=== PATIENT | male | born 1965 | race Hispanic/Latino ===

== ENCOUNTER 2017-09-20 15:34 | Outpatient (CLI) | payer OTHER | END 2017-09-20 15:35 | disposition home or self-care (01) | LOC: BICRAD 15:34 | PROVIDERS: ATTEND Internal Medicine | DX: L97.521 Non-pressure chronic ulcer of other part of left foot limited to breakdown of skin (principal); M19.071 Primary osteoarthritis, right ankle and foot ==

== ENCOUNTER 2024-02-05 09:13 | Inpatient (IN) | payer OTHER ==
[2024-02-05] MEDS ORDERED: Morphine 4 MG/ML VIAL ONE ×3 (10:49→15:18)
[2024-02-05] MEDS ORDERED: Ondansetron PF 4 MG/2 ML Vial ONE (10:49)
[2024-02-05 11:09] LABS: #Basophils 0.05 10x3/uL (0.0-0.2); %Basophils 0.6 % (0.0-1.0); %Eosinophils 1.2 % (0.0-10.0); %Lymphocytes 8.1 % (21.0-51.0); %Monocytes 9.6 % (0.0-10.0); %Neutrophils 79.9 % (42.0-75.0); Hematocrit 26.4 % (42.0-52.0); Hemoglobin 9.1 g/dL (14.0-18.0); Mean Corpuscular HGB CONC 34.5 g/dL (32.0-36.0); Mean Corpuscular Hemoglobin 31.3 pg (27.0-31.0); Mean Corpuscular Volume 90.7 fL (78.0-98.0); Mean Platelet Volume 9.4 fL (7.4-10.4); Platelet Count 445 10x3/uL (130-400); RBC Distribution Width 17.1 % (11.5-14.5); Red Blood Cell (RBC) Count 2.91 mill/uL (4.70-6.10)
[2024-02-05 11:31] LABS: ALT (SGPT) 6 U/L (8-55); AST (SGOT) 11 U/L (5-34); Albumin 2.4 g/dL (3.5-5.0); Alkaline Phosphatase 108 U/L (40-110); Anion Gap 17 mmol/L (10-20); BUN (Urea Nitrogen) 18 mg/dL (8.4-25.7); Bilirubin, Total 0.6 mg/dL (0.2-1.2); Calc. Creatinine Clearance 0 mL/min (70-130); Calcium 9.4 mg/dL (7.8-10.44); Carbon Dioxide 25 mmol/L (22-29); Chloride 98 mmol/L (98-107); Estimated GFR 104; Globulin 4.5 g/dL (2.4-3.5); Glucose 160 mg/dL (70-105); Lipase 6 U/L (8-78); Potassium 3.7 mmol/L (3.5-5.1); Protein, Total 6.9 g/dL (6.0-8.3); Sodium 136 mmol/L (136-145)
[2024-02-05 11:40] LABS: CRP,High Sensitivity (Inhouse) 17.44 mg/dL (< or = 0.5)
[2024-02-05] MEDS ORDERED: Piperacillin/Tazobactam 4.5 GM VIAL ONE (12:47)
[2024-02-05] MEDS ORDERED: Sodium Chloride 0.9% 100 ML ONE (12:48)
[2024-02-05] MEDS ORDERED: Vancomycin 1 GM/200 ML (FROZEN) BAG ONE (12:48)
[2024-02-05] MEDS ORDERED: Iopamidol-370 76% 500 ML MDV (1 ML CHARGE) ONE (13:57)
[2024-02-05] MEDS ORDERED: Dextrose 50% Abboject 50 ML SYRINGE SLOW IVP PRN (14:15)
[2024-02-05] MEDS ORDERED: Ondansetron ODT 4 MG TAB PO PRN (14:15)
[2024-02-05] MEDS ORDERED: Docusate 100 MG CAP PO PRN (14:18)
[2024-02-05 14:49] LABS: Bilirubin Small (Negative); Blood, Urine Small (Negative); Glucose, Urine (Dipstick) Negative (Negative); Ketone, Urine 15 mg/dL (Negative); Leukocyte Negative (Negative); Nitrite Negative (Negative); Protein, Urine (Dipstick) > or equal to 300 mg/dL (Neg-Trace); Urobilinogen 0.2 mg/dL (Less than 2)
[2024-02-05 14:51] LABS: Clarity Hazy (Clear); Specific Gravity, Urine 1.018 (1.002-1.036)
[2024-02-05 14:58] LABS: Bacteria/HPF None Seen HPF (None Seen); CAUTI Indications for Culture Dysuria,urgency,freq; RBC/HPF 0-3 HPF (0-3); Squamous Epithelial None Seen HPF (0-3); WBC/HPF 0-3 HPF (0-3)
[2024-02-05 14:59] LABS: Urine Culture Reflex No No
[2024-02-05] MEDS: Acetaminophen 325 MG TAB PO PRN (18:15)
[2024-02-05] MEDS: HumaLOG 300 UNITS/3 ML VIAL SC PRN (18:17)
[2024-02-05 18:55] VITALS: BMI 22.3
[2024-02-05] MEDS: Gabapentin 300 MG CAP PO SCH (19:53)
[2024-02-05] MEDS: Morphine 2 MG/ML VIAL SLOW IVP PRN (19:54)
[2024-02-05] MEDS: Apixaban 5 MG TAB PO SCH (19:54)
[2024-02-06 04:52] LABS: #Basophils 0.05 10x3/uL (0.0-0.2); %Basophils 0.6 % (0.0-1.0); %Eosinophils 3.1 % (0.0-10.0); %Lymphocytes 8.2 % (21.0-51.0); %Monocytes 12.5 % (0.0-10.0); %Neutrophils 75.2 % (42.0-75.0); Hematocrit 25.7 % (42.0-52.0); Hemoglobin 8.6 g/dL (14.0-18.0); Mean Corpuscular HGB CONC 33.5 g/dL (32.0-36.0); Mean Corpuscular Hemoglobin 30.7 pg (27.0-31.0); Mean Corpuscular Volume 91.8 fL (78.0-98.0); Platelet Count 392 10x3/uL (130-400)
[2024-02-06 05:20] LABS: ALT (SGPT) 6 U/L (8-55); AST (SGOT) 9 U/L (5-34); Albumin 2.1 g/dL (3.5-5.0); Alkaline Phosphatase 96 U/L (40-110); Anion Gap 15 mmol/L (10-20); BUN (Urea Nitrogen) 16 mg/dL (8.4-25.7); Bilirubin, Total 0.5 mg/dL (0.2-1.2); Calc. Creatinine Clearance 117 mL/min (70-130); Calcium 8.7 mg/dL (7.8-10.44); Carbon Dioxide 24 mmol/L (22-29); Chloride 99 mmol/L (98-107); Estimated GFR 106; Globulin 4.2 g/dL (2.4-3.5); Glucose 160 mg/dL (70-105); Potassium 3.3 mmol/L (3.5-5.1); Protein, Total 6.3 g/dL (6.0-8.3); Sodium 135 mmol/L (136-145)
[2024-02-06] MEDS: Levothyroxine Sodium 112 MCG TAB PO SCH (05:43)
[2024-02-06] MEDS: Hydrochlorothiazide 25 MG TAB PO SCH (09:17)
[2024-02-06] MEDS: Senokot S 8.6-50 MG TAB PO SCH (09:17)
[2024-02-06] MEDS: Lidocaine 4% Patch TD SCH (09:17)
[2024-02-06] MEDS: Potassium Chloride 20 MEQ TAB PO SCH (09:17)
[2024-02-06] MEDS: metFORMIN 500 MG TAB PO SCH (09:18)
[2024-02-06] MEDS: Lisinopril 20 MG TAB PO SCH (09:18)
[2024-02-06] MEDS: Metoprolol Tartrate 5 MG (5 mL) VIAL IVP SCH (13:03)
[2024-02-06] MEDS: Vancomycin (BATCH) 1.75 GM in Premix 1 BAG IVPB SCH (17:08)
[2024-02-06] MEDS ORDERED: Vancomycin 1 GM in Premix 1 BAG IVPB SCH (21:00)
[2024-02-06] MEDS: Transdermal Patch Removal TOP SCH (21:35)
[2024-02-07] MEDS: cloNIDine 0.1 MG TAB PO SCH (01:23)
[2024-02-07 04:33] LABS: Vancomycin, Random 19.6 ug/mL (See Comment)
[2024-02-07] MEDS: Vancomycin (BATCH) 1.25 GM in Premix 1 BAG IVPB SCH (04:35)
[2024-02-07] MEDS: Levothyroxine Sodium 100 MCG TAB PO SCH (05:02)
[2024-02-07] MEDS ORDERED: Ketamine In 0.9 % NaCl 50 MG/5 ML SYRINGE ONE (08:51)
[2024-02-07] MEDS ORDERED: PROPOFOL 200 MG/20 ML VIAL ONE (09:19)
[2024-02-07] MEDS: Gabapentin 300 MG CAP PO SCH (11:16)
[2024-02-07] MEDS: HYDROcodone/Acetaminophen 7.5/325 mg Tablet PO PRN (13:12)
[2024-02-07] MEDS: Metoprolol Tartrate 50 MG TAB PO SCH ×2 (15:35→20:38)
[2024-02-07] MEDS: Metoprolol Tartrate 5 MG (5 mL) VIAL IVP SCH (16:34)
[2024-02-07] MEDS: Potassium Chloride 20 MEQ TAB PO SCH (16:34)
[2024-02-07] MEDS: Cyclobenzaprine 10 MG TAB PO SCH (20:37)
[2024-02-07] MEDS: Vancomycin 1 GM in Premix 1 BAG IVPB SCH (20:39)
[2024-02-08] MEDS: hydrALAZINE 20 MG/ML VIAL SLOW IVP SCH (03:58)
[2024-02-08 04:23] LABS: #Basophils 0.06 10x3/uL (0.0-0.2); %Basophils 1.1 % (0.0-1.0); %Eosinophils 7.5 % (0.0-10.0); %Lymphocytes 19.5 % (21.0-51.0); %Monocytes 11.1 % (0.0-10.0); %Neutrophils 60.4 % (42.0-75.0); Hematocrit 25.2 % (42.0-52.0); Hemoglobin 8.6 g/dL (14.0-18.0); Mean Corpuscular HGB CONC 34.1 g/dL (32.0-36.0); Mean Corpuscular Hemoglobin 29.7 pg (27.0-31.0); Mean Corpuscular Volume 86.9 fL (78.0-98.0); Mean Platelet Volume 8.7 fL (7.4-10.4); Platelet Count 440 10x3/uL (130-400); RBC Distribution Width 16.2 % (11.5-14.5)
[2024-02-08 04:51] LABS: Anion Gap 13 mmol/L (10-20); BUN (Urea Nitrogen) 13 mg/dL (8.4-25.7); Calc. Creatinine Clearance 117 mL/min (70-130); Calcium 8.6 mg/dL (7.8-10.44); Carbon Dioxide 26 mmol/L (22-29); Chloride 100 mmol/L (98-107); Estimated GFR 106; Glucose 170 mg/dL (70-105); Sodium 136 mmol/L (136-145)
[2024-02-08 04:53] LABS: Vancomycin, Random 25.5 ug/mL (See Comment)
[2024-02-08] MEDS: Potassium Chloride 20 MEQ TAB PO SCH (08:59)
[2024-02-08] MEDS: Potassium Bicarbonate/Cit Ac 20 MEQ TAB PO SCH (12:04)
[2024-02-08] MEDS: NIFEdipine XL 60 MG ER.TAB PO SCH (12:35)
[2024-02-08] MEDS ORDERED: Polyethylene Glycol 3350 17 GM Packet PO PRN (14:14)
[2024-02-08] MEDS: Polyethylene Glycol 3350 17 GM Packet PO SCH (14:37)
[2024-02-08] MEDS: Dextrose 5 %-0.45 % NaCl 1,000 ML IV SCH (14:37)
[2024-02-08] MEDS ORDERED: Diazepam 5 MG TAB PO PRN (15:11)
[2024-02-08] MEDS: HumaLOG 300 UNITS/3 ML VIAL SC PRN (21:15)
[2024-02-08] MEDS: Tamsulosin HCl 0.4 MG CAP PO SCH (23:54)
[2024-02-09] MEDS ORDERED: HumaLOG 300 UNITS/3 ML VIAL SC PRN (08:34)
[2024-02-09] MEDS: Vancomycin (BATCH) 1.5 GM in Premix 1 BAG IVPB SCH (09:26)
[2024-02-09] MEDS: NIFEdipine XL 60 MG ER.TAB PO SCH (09:28)
[2024-02-09] MEDS: Insulin Glargine 30 UNITS/0.3 ML VIAL SC SCH (21:17)
[2024-02-09] MEDS: Vancomycin HCl 750 MG in Sodium Chloride 0.9% 250 ML 250 ML IVPB SCH (21:19)
[2024-02-10 05:11] LABS: Hematocrit 22.5 % (42.0-52.0); Hemoglobin 7.7 g/dL (14.0-18.0); Mean Corpuscular HGB CONC 34.2 g/dL (32.0-36.0); Mean Corpuscular Hemoglobin 29.5 pg (27.0-31.0); Mean Corpuscular Volume 86.2 fL (78.0-98.0); Mean Platelet Volume 8.5 fL (7.4-10.4); Platelet Count 420 10x3/uL (130-400); RBC Distribution Width 16.1 % (11.5-14.5); Red Blood Cell (RBC) Count 2.61 mill/uL (4.70-6.10)
[2024-02-10 05:53] LABS: Anion Gap 11 mmol/L (10-20); BUN (Urea Nitrogen) 16 mg/dL (8.4-25.7); Calc. Creatinine Clearance 96 mL/min (70-130); Calcium 8.3 mg/dL (7.8-10.44); Carbon Dioxide 28 mmol/L (22-29); Chloride 98 mmol/L (98-107); Estimated GFR 100; Glucose 319 mg/dL (70-105); Potassium 3.9 mmol/L (3.5-5.1); Sodium 133 mmol/L (136-145)
[2024-02-10] MEDS: HumaLOG 300 UNITS/3 ML VIAL SC PRN (06:06)
[2024-02-10] MEDS: NIFEdipine XL 30 MG ER.TAB PO SCH (10:16)
[2024-02-10] MEDS: Insulin Glargine 30 UNITS/0.3 ML VIAL SC SCH (10:17)
[2024-02-10] MEDS ORDERED: ePHEDrine Sulfate 50 MG/10 ML VIAL ONE (16:00)
[2024-02-10] MEDS ORDERED: PROPOFOL 200 MG/20 ML VIAL ONE (16:00)
[2024-02-10] MEDS ORDERED: Lidocaine 1% PF 5 ML VIAL ONE (16:00)
[2024-02-10] MEDS ORDERED: fentaNYL 50 mcg/mL 1 mL Vial ONE (17:51)
[2024-02-11 05:04] LABS: Hematocrit 23.5 % (42.0-52.0); Hemoglobin 8.2 g/dL (14.0-18.0); Mean Corpuscular HGB CONC 34.9 g/dL (32.0-36.0); Mean Corpuscular Hemoglobin 30.6 pg (27.0-31.0); Mean Corpuscular Volume 87.7 fL (78.0-98.0); Mean Platelet Volume 8.8 fL (7.4-10.4); Platelet Count 446 10x3/uL (130-400); RBC Distribution Width 16.7 % (11.5-14.5); Red Blood Cell (RBC) Count 2.68 mill/uL (4.70-6.10)
[2024-02-11 05:12] LABS: INR-International Normal Ratio 1.2; PTT 37.4 sec (22.9-36.1); Prothrombin Time 14.7 sec (12.0-14.7)
[2024-02-11 06:21] LABS: Anion Gap 11 mmol/L (10-20); BUN (Urea Nitrogen) 16 mg/dL (8.4-25.7); Calc. Creatinine Clearance 115 mL/min (70-130); Calcium 8.6 mg/dL (7.8-10.44); Carbon Dioxide 28 mmol/L (22-29); Chloride 99 mmol/L (98-107); Estimated GFR 104; Glucose 204 mg/dL (70-105); Potassium 3.7 mmol/L (3.5-5.1); Sodium 134 mmol/L (136-145); Vancomycin, Random 31.3 ug/mL (See Comment)
[2024-02-11] MEDS: Saccharomyces boulardii 250 MG CAP PO SCH (10:30)
[2024-02-11] MEDS: NIFEdipine XL 30 MG ER.TAB PO SCH (10:30)
[2024-02-11] MEDS ORDERED: Albumin 5% 500 ML ONE (11:09)
[2024-02-11] MEDS ORDERED: KETAMINE 100 MG/ML (5ML VIAL) ONE (11:09)
[2024-02-11] MEDS ORDERED: Thrombin 5000 UNITS/5 ML VIAL ONE (11:20)
[2024-02-11] MEDS ORDERED: Vancomycin 1 GM VIAL ONE (11:20)
[2024-02-11] MEDS ORDERED: PROPOFOL 20 ML ONE (11:22)
[2024-02-11] MEDS ORDERED: fentaNYL PF 100 MCG/2 ML SYRINGE ONE (11:22)
[2024-02-11] MEDS ORDERED: Vecuronium 10 MG VIAL ONE (11:50)
[2024-02-11] MEDS ORDERED: Dexamethasone 20 MG/5 ML VIAL ONE (11:50)
[2024-02-11] MEDS ORDERED: Rocuronium Bromide 10 MG/ML (10ML VIAL) ONE (11:50)
[2024-02-11] MEDS ORDERED: PACU-Morphine 4MG/ML VIAL SLOW IVP PRN (13:25)
[2024-02-11] MEDS ORDERED: Ketorolac Tromethamine 30 MG/ML VIAL IVP PRN (13:25)
[2024-02-11] MEDS ORDERED: Promethazine HCl 25 MG/ML VIAL IM PRN (13:25)
[2024-02-11] MEDS ORDERED: Morphine Sulfate 2 MG/ML SYRINGE SLOW IVP PRN (13:25)
[2024-02-11] MEDS ORDERED: Ondansetron HCl/PF 4 MG/2 ML Vial IVP PRN (13:25)
[2024-02-11] MEDS ORDERED: SUGAMMADEX SODIUM 200 MG/2 ML VIAL ONE (14:32)
[2024-02-11] MEDS ORDERED: Lidocaine 2% PF 5 ML VIAL ONE (14:32)
[2024-02-11] MEDS ORDERED: diphenhydrAMINE 25 MG CAP PO PRN (15:32)
[2024-02-11] MEDS ORDERED: Milk Of Magnesia 30 ML UDCUP PO PRN (15:32)
[2024-02-11] MEDS ORDERED: Fentanyl 250 MCG/5 ML VIAL ONE (16:19)
[2024-02-11] MEDS ORDERED: HYDROmorphone 0.5 MG/0.5 ML SYRINGE ONE (16:37)
[2024-02-11] MEDS: fentaNYL 50 mcg/mL 1 mL Vial SLOW IVP PRN (18:04)
[2024-02-11] MEDS: Ketorolac Tromethamine 30 MG (1 mL) VIAL IVP PRN (20:52)
[2024-02-11] MEDS: tiZANidine HCl 4 MG TAB PO PRN (20:54)
[2024-02-11] MEDS: Docusate 100 MG CAP PO SCH (20:55)
[2024-02-11] MEDS: HYDROcodone/Acetaminophen 10/325 mg Tablet PO PRN (20:55)
[2024-02-11] MEDS: Vancomycin (BATCH) 1.25 GM in Premix 1 BAG IVPB SCH (21:06)
[2024-02-11] MEDS: Sodium Chloride 0.9% 1,000 ML IV SCH (21:07)
[2024-02-12 07:58] LABS: #Basophils 0.04 10x3/uL (0.0-0.2); %Basophils 0.5 % (0.0-1.0); %Eosinophils 0.8 % (0.0-10.0); %Lymphocytes 15.2 % (21.0-51.0); %Monocytes 8.8 % (0.0-10.0); %Neutrophils 73.8 % (42.0-75.0); Hematocrit 24.9 % (42.0-52.0); Hemoglobin 8.5 g/dL (14.0-18.0); Mean Corpuscular HGB CONC 34.1 g/dL (32.0-36.0); Mean Corpuscular Hemoglobin 30.8 pg (27.0-31.0); Mean Corpuscular Volume 90.2 fL (78.0-98.0); Mean Platelet Volume 8.7 fL (7.4-10.4); Platelet Count 411 10x3/uL (130-400); RBC Distribution Width 17.2 % (11.5-14.5); Red Blood Cell (RBC) Count 2.76 mill/uL (4.70-6.10)
[2024-02-12 08:18] LABS: Anion Gap 12 mmol/L (10-20); BUN (Urea Nitrogen) 21 mg/dL (8.4-25.7); Calc. Creatinine Clearance 103 mL/min (70-130); Calcium 8.7 mg/dL (7.8-10.44); Carbon Dioxide 25 mmol/L (22-29); Chloride 100 mmol/L (98-107); Estimated GFR 99; Glucose 313 mg/dL (70-105); Potassium 4.3 mmol/L (3.5-5.1); Sodium 133 mmol/L (136-145)
[2024-02-12] MEDS: metFORMIN 500 MG TAB PO SCH (18:07)
[2024-02-12] MEDS: Insulin Glargine 30 UNITS/0.3 ML VIAL SC SCH (21:00)
[2024-02-13 05:24] LABS: #Basophils 0.05 10x3/uL (0.0-0.2); %Basophils 0.5 % (0.0-1.0); %Eosinophils 2.9 % (0.0-10.0); %Lymphocytes 13.8 % (21.0-51.0); %Monocytes 9.1 % (0.0-10.0); %Neutrophils 73.1 % (42.0-75.0); Hematocrit 23.9 % (42.0-52.0); Hemoglobin 8.1 g/dL (14.0-18.0); Mean Corpuscular HGB CONC 33.9 g/dL (32.0-36.0); Mean Corpuscular Hemoglobin 30.1 pg (27.0-31.0); Mean Corpuscular Volume 88.8 fL (78.0-98.0); Mean Platelet Volume 8.9 fL (7.4-10.4); Platelet Count 398 10x3/uL (130-400); RBC Distribution Width 17.4 % (11.5-14.5); Red Blood Cell (RBC) Count 2.69 mill/uL (4.70-6.10)
[2024-02-13] MEDS: Acetaminophen/Codeine 30-300mg Tablet PO PRN (05:51)
[2024-02-13 06:16] LABS: Anion Gap 10 mmol/L (10-20); BUN (Urea Nitrogen) 23 mg/dL (8.4-25.7); Calc. Creatinine Clearance 105 mL/min (70-130); Calcium 8.1 mg/dL (7.8-10.44); Carbon Dioxide 27 mmol/L (22-29); Chloride 100 mmol/L (98-107); Estimated GFR 100; Glucose 130 mg/dL (70-105); Potassium 4.2 mmol/L (3.5-5.1); Sodium 133 mmol/L (136-145)
[2024-02-13] MEDS: metFORMIN 500 MG TAB PO SCH (08:46)
[2024-02-13] MEDS: Enoxaparin 40 MG (0.4 mL) SYRINGE SC SCH (08:47)
[2024-02-13] MEDS ORDERED: Bisacodyl 10 MG SUPP PR PRN (16:30)
[2024-02-13] MEDS: Polyethylene Glycol 3350 17 GM Packet PO SCH (17:26)
[2024-02-13] MEDS: Vancomycin 1 GM in Premix 1 BAG IVPB SCH (22:41)
[2024-02-14] MEDS ORDERED: Lidocaine 1% PF 5 ML VIAL ONE (08:26)
[2024-02-14] MEDS ORDERED: Sodium Bicarbonate 2.5 MEQ/5 ML SDV ONE (08:26)
[2024-02-14] MEDS: Polyethylene Glycol 3350 17 GM Packet PO SCH (08:33)
[2024-02-15] MEDS: Rifampin 600 MG in Sodium Chloride 0.9% 100 ML IVPB SCH (01:22)
[2024-02-15 07:35] LABS: Vancomycin, Random 28.9 ug/mL (See Comment)
[2024-02-16 09:28] LABS: #Basophils 0.06 10x3/uL (0.0-0.2); %Basophils 0.7 % (0.0-1.0); %Eosinophils 2.5 % (0.0-10.0); %Lymphocytes 15.3 % (21.0-51.0); Hemoglobin 8.3 g/dL (14.0-18.0); Mean Corpuscular HGB CONC 34.6 g/dL (32.0-36.0); Mean Corpuscular Hemoglobin 29.9 pg (27.0-31.0); Mean Corpuscular Volume 86.3 fL (78.0-98.0); Platelet Count 373 10x3/uL (130-400); RBC Distribution Width 16.2 % (11.5-14.5); Red Blood Cell (RBC) Count 2.78 mill/uL (4.70-6.10)
[2024-02-16 09:39] LABS: Anion Gap 12 mmol/L (10-20); BUN (Urea Nitrogen) 15 mg/dL (8.4-25.7); Calc. Creatinine Clearance 153 mL/min (70-130); Calcium 8.5 mg/dL (7.8-10.44); Carbon Dioxide 27 mmol/L (22-29); Chloride 97 mmol/L (98-107); Estimated GFR 111; Glucose 91 mg/dL (70-105); Potassium 4.1 mmol/L (3.5-5.1); Sodium 132 mmol/L (136-145)
[2024-02-16 09:40] LABS: CRP,High Sensitivity (Inhouse) 4.66 mg/dL (< or = 0.5)
[2024-02-17] MEDS: Ondansetron PF 4 MG/2 ML Vial IVP PRN (13:37)
[2024-02-17] MEDS ORDERED: Insulin Glargine 30 UNITS/0.3 ML VIAL SC SCH (14:42)
[2024-02-17] MEDS: Glucagon 1 MG/ML KIT IM PRN (16:22)
[2024-02-17] MEDS: Dextrose 5% in Water 1,000 ML IV PRN (16:30)
[2024-02-17] MEDS: Vancomycin (BATCH) 1.25 GM in Premix 1 BAG IVPB SCH (23:35)
[2024-02-18 09:16] LABS: #Basophils 0.04 10x3/uL (0.0-0.2); %Basophils 0.5 % (0.0-1.0); %Lymphocytes 17.6 % (21.0-51.0); %Monocytes 8.4 % (0.0-10.0); %Neutrophils 70.1 % (42.0-75.0); Hematocrit 21.8 % (42.0-52.0); Hemoglobin 7.6 g/dL (14.0-18.0); Mean Corpuscular HGB CONC 34.9 g/dL (32.0-36.0); Mean Corpuscular Hemoglobin 30.8 pg (27.0-31.0); Mean Corpuscular Volume 88.3 fL (78.0-98.0); Mean Platelet Volume 8.9 fL (7.4-10.4); Platelet Count 334 10x3/uL (130-400); RBC Distribution Width 15.9 % (11.5-14.5); Red Blood Cell (RBC) Count 2.47 mill/uL (4.70-6.10)
[2024-02-18 09:28] LABS: Vancomycin, Random 27.4 ug/mL (See Comment)
[2024-02-18 09:32] LABS: ALT (SGPT) 6 U/L (8-55); AST (SGOT) 13 U/L (5-34); Albumin 1.8 g/dL (3.5-5.0); Alkaline Phosphatase 109 U/L (40-110); Anion Gap 10 mmol/L (10-20); BUN (Urea Nitrogen) 14 mg/dL (8.4-25.7); Bilirubin, Total 0.5 mg/dL (0.2-1.2); Calc. Creatinine Clearance 137 mL/min (70-130); Calcium 8.4 mg/dL (7.8-10.44); Carbon Dioxide 28 mmol/L (22-29); Chloride 95 mmol/L (98-107); Estimated GFR 107; Globulin 3.6 g/dL (2.4-3.5); Glucose 92 mg/dL (70-105); Potassium 4.1 mmol/L (3.5-5.1); Protein, Total 5.4 g/dL (6.0-8.3); Sodium 129 mmol/L (136-145)
[2024-02-19] MEDS: HYDROcodone/Acetaminophen 5/325 mg Tablet PO PRN (13:57)
[2024-02-20 08:42] VITALS: BMI 25.7
[2024-02-21] MEDS: metFORMIN 500 MG TAB PO SCH (08:58)
[2024-02-22] MEDS ORDERED: Morphine 4 MG/ML VIAL SLOW IVP SCH (09:45)
[2024-02-22] MEDS: Morphine 2 MG/ML VIAL SLOW IVP SCH (10:07)
[2024-02-22] MEDS: Morphine 4 MG/ML VIAL SLOW IVP SCH (10:07)
[2024-02-22] MEDS: Insulin Glargine 30 UNITS/0.3 ML VIAL SC SCH (21:17)
[2024-02-23 07:53] LABS: Vancomycin, Random 29.6 ug/mL (See Comment)
[2024-02-24] MEDS: hydrALAZINE 20 MG/ML VIAL SLOW IVP SCH (01:05)
[2024-02-25 04:54] LABS: Hemoglobin 7.5 g/dL (14.0-18.0); Mean Corpuscular HGB CONC 34.1 g/dL (32.0-36.0); Mean Corpuscular Hemoglobin 29.6 pg (27.0-31.0); Platelet Count 358 10x3/uL (130-400); RBC Distribution Width 15.9 % (11.5-14.5); Red Blood Cell (RBC) Count 2.53 mill/uL (4.70-6.10)
[2024-02-25 05:17] LABS: Anion Gap 13 mmol/L (10-20); BUN (Urea Nitrogen) 19 mg/dL (8.4-25.7); Calc. Creatinine Clearance 146 mL/min (70-130); Calcium 8.2 mg/dL (7.8-10.44); Carbon Dioxide 24 mmol/L (22-29); Chloride 100 mmol/L (98-107); Estimated GFR 108; Glucose 98 mg/dL (70-105); Potassium 3.8 mmol/L (3.5-5.1); Sodium 133 mmol/L (136-145)
[2024-02-25] MEDS ORDERED: NIFEdipine XL 30 MG ER.TAB PO SCH (07:56)
[2024-02-25] MEDS: NIFEdipine XL 60 MG ER.TAB PO SCH (09:07)
[2024-02-26 11:44] VITALS: TEMP 97.9
[2024-02-26 15:40] VITALS: BP 164/81
== END 2024-02-26 16:17 | DRG 853 ==
LOC: ERS 09:13 → ERHOLD 14:20 → 2SW 15:57 → OBSVTOIN 02-06 15:19 → 2NO 02-08 19:37 → SURG A 02-11 09:28
PROVIDERS: ADMIT Family Medicine; ATTEND Hospitalist
PROC: 3E03329 Introduction of Other Anti-infective into Peripheral Vein, Percutaneous Approach (ICD-10-PCS; 2024-02-05)
PROC: B245ZZ4 Ultrasonography of Left Heart, Transesophageal (ICD-10-PCS; 2024-02-07)
PROC: 3E033XZ Introduction of Vasopressor into Peripheral Vein, Percutaneous Approach (ICD-10-PCS; 2024-02-10)
PROC: 0PS404Z Reposition Thoracic Vertebra with Internal Fixation Device, Open Approach (ICD-10-PCS; principal; 2024-02-11)
PROC: 00NX0ZZ Release Thoracic Spinal Cord, Open Approach (ICD-10-PCS; 2024-02-11)
PROC: 30233J1 Transfusion of Nonautologous Serum Albumin into Peripheral Vein, Percutaneous Approach (ICD-10-PCS; 2024-02-11)
PROC: 30233N1 Transfusion of Nonautologous Red Blood Cells into Peripheral Vein, Percutaneous Approach (ICD-10-PCS; 2024-02-12)
PROC: 02HV33Z Insertion of Infusion Device into Superior Vena Cava, Percutaneous Approach (ICD-10-PCS; 2024-02-14)
PROC: B5181ZA Fluoroscopy of Superior Vena Cava using Low Osmolar Contrast, Guidance (ICD-10-PCS; 2024-02-14)
PROC: 3E04329 Introduction of Other Anti-infective into Central Vein, Percutaneous Approach (ICD-10-PCS; 2024-02-14)
PROC: B548ZZA Ultrasonography of Superior Vena Cava, Guidance (ICD-10-PCS; 2024-02-14)
DX: A41.02 Sepsis due to Methicillin resistant Staphylococcus aureus (principal); G06.1 Intraspinal abscess and granuloma; M46.24 Osteomyelitis of vertebra, thoracic region; M84.48XA Pathological fracture, other site, initial encounter for fracture; E11.69 Type 2 diabetes mellitus with other specified complication; G47.33 Obstructive sleep apnea (adult) (pediatric); M46.44 Discitis, unspecified, thoracic region; M48.04 Spinal stenosis, thoracic region; B95.62 Methicillin resistant Staphylococcus aureus infection as the cause of diseases classified elsewhere; J32.9 Chronic sinusitis, unspecified; D64.9 Anemia, unspecified; E87.6 Hypokalemia; E03.9 Hypothyroidism, unspecified; I48.0 Paroxysmal atrial fibrillation; Z79.2 Long term (current) use of antibiotics; Z91.199 Patient's noncompliance with other medical treatment and regimen due to unspecified reason; Z90.49 Acquired absence of other specified parts of digestive tract; Z98.890 Other specified postprocedural states
CPT/HCPCS: 36415; 36416; 36430; 36569; 51701; 71045; 72128; 72131; 72157; 72158; 74177; 76937; 77001; 80048; 80053; 80202; 81001; 82565; 83605; 83690; 85025; 85027; 85610; 85730; 86140; 86141; 86850; 86900; 86901; 87040; 87077; 87086; 87149; 87186; 93005; 93010; 93312; 96365; 96367; 96375; 96376; A6258; C1713; C1751; C1776; C1889; G0378; J0360; J1100; J1170; J1611; J1650; J1815; J1885; J2001; J2270; J2272; J2405; J2543; J2704; J3010; J3370; J3370-JW; J3490; J7042; J7050; J7070; P9016; P9045; Q9967

== ENCOUNTER 2024-03-14 15:47 | Inpatient (IN) | payer OTHER ==
[~2024-03-14 15:47] MED LIST: Iopamidol-370 76% 500 ML MDV (1 ML CHARGE) ONE
[2024-03-14 18:58] LABS: #Basophils 0.05 10x3/uL (0.0-0.2); %Basophils 0.9 % (0.0-1.0); %Eosinophils 3.5 % (0.0-10.0); %Lymphocytes 14.9 % (21.0-51.0); %Monocytes 7.3 % (0.0-10.0); %Neutrophils 73.1 % (42.0-75.0); Hemoglobin 7.9 g/dL (14.0-18.0); Mean Corpuscular HGB CONC 34.3 g/dL (32.0-36.0); Mean Corpuscular Hemoglobin 29.7 pg (27.0-31.0); Mean Corpuscular Volume 86.5 fL (78.0-98.0); Mean Platelet Volume 8.1 fL (7.4-10.4); Platelet Count 287 10x3/uL (130-400); RBC Distribution Width 14.5 % (11.5-14.5); Red Blood Cell (RBC) Count 2.66 mill/uL (4.70-6.10)
[2024-03-14 19:17] LABS: ALT (SGPT) 5 U/L (8-55); AST (SGOT) 13 U/L (5-34); Albumin 2.1 g/dL (3.5-5.0); Alkaline Phosphatase 112 U/L (40-110); Anion Gap 11 mmol/L (10-20); BUN (Urea Nitrogen) 14 mg/dL (8.4-25.7); Bilirubin, Total 0.2 mg/dL (0.2-1.2); Calc. Creatinine Clearance 0 mL/min (70-130); Calcium 8.3 mg/dL (7.8-10.44); Carbon Dioxide 26 mmol/L (22-29); Chloride 99 mmol/L (98-107); Estimated GFR 108; Globulin 3.8 g/dL (2.4-3.5); Glucose 142 mg/dL (70-105); Potassium 3.4 mmol/L (3.5-5.1); Protein, Total 5.9 g/dL (6.0-8.3); Sodium 133 mmol/L (136-145)
[2024-03-14 19:19] LABS: Troponin I 0.028 ng/mL (< 0.028)
[2024-03-14] MEDS ORDERED: hydrALAZINE 20 MG/ML VIAL ONE (20:29)
[2024-03-14] MEDS ORDERED: Ondansetron ODT 4 MG TAB SL PRN (21:45)
[2024-03-14] MEDS ORDERED: Ondansetron PF 4 MG/2 ML Vial IVP PRN (21:45)
[2024-03-14] MEDS ORDERED: Glucagon 1 MG/ML KIT IM PRN (22:31)
[2024-03-14] MEDS ORDERED: Dextrose 50% Abboject 50 ML SYRINGE SLOW IVP PRN (22:31)
[2024-03-14] MEDS ORDERED: Dextrose 5% in Water 1,000 ML IV PRN (22:31)
[2024-03-14] MEDS: Vancomycin (BATCH) 1.5 GM in Premix 1 BAG IVPB SCH (23:04)
[2024-03-14] MEDS: Rifampin 300 MG CAP PO SCH (23:04)
[2024-03-14] MEDS: Potassium Chloride 20 MEQ TAB PO SCH (23:04)
[2024-03-14 23:30] VITALS: BMI 26.1
[2024-03-15] MEDS: Vancomycin HCl 500 MG in Sodium Chloride 0.9% 100 ML IVPB SCH (01:09)
[2024-03-15] MEDS: Levothyroxine Sodium 100 MCG TAB PO SCH (05:13)
[2024-03-15] MEDS: Metoprolol Tartrate 50 MG TAB PO SCH (08:15)
[2024-03-15] MEDS: Lisinopril 20 MG TAB PO SCH (08:15)
[2024-03-15] MEDS: NIFEdipine XL 30 MG ER.TAB PO SCH (08:15)
[2024-03-15] MEDS: Gabapentin 300 MG CAP PO SCH (08:16)
[2024-03-15] MEDS: Apixaban 5 MG TAB PO SCH (08:16)
[2024-03-15] MEDS: Polyethylene Glycol 3350 17 GM Packet PO SCH (08:16)
[2024-03-15] MEDS ORDERED: Enoxaparin 30 MG (0.3 mL) SYRINGE SC SCH (09:00)
[2024-03-15] MEDS: Cyclobenzaprine 10 MG TAB PO SCH (11:10)
[2024-03-15] MEDS: Insulin Glargine 30 UNITS/0.3 ML VIAL SC SCH (11:11)
[2024-03-15] MEDS: Vancomycin (BATCH) 1.5 GM in Premix 1 BAG IVPB SCH (11:11)
[2024-03-15 11:26] LABS: #Basophils 0.05 10x3/uL (0.0-0.2); %Basophils 0.9 % (0.0-1.0); %Eosinophils 3.1 % (0.0-10.0); %Lymphocytes 17.3 % (21.0-51.0); %Monocytes 9.4 % (0.0-10.0); %Neutrophils 68.8 % (42.0-75.0); Hematocrit 23.8 % (42.0-52.0); Hemoglobin 8.2 g/dL (14.0-18.0); Mean Corpuscular HGB CONC 34.5 g/dL (32.0-36.0); Mean Corpuscular Hemoglobin 29.4 pg (27.0-31.0); Mean Corpuscular Volume 85.3 fL (78.0-98.0); Mean Platelet Volume 8.6 fL (7.4-10.4); Platelet Count 309 10x3/uL (130-400); RBC Distribution Width 14.6 % (11.5-14.5); Red Blood Cell (RBC) Count 2.79 mill/uL (4.70-6.10)
[2024-03-15 11:46] LABS: Vancomycin, Random 20.6 ug/mL (See Comment)
[2024-03-15 11:49] LABS: Anion Gap 13 mmol/L (10-20); BUN (Urea Nitrogen) 15 mg/dL (8.4-25.7); Calc. Creatinine Clearance 111 mL/min (70-130); Calcium 8.3 mg/dL (7.8-10.44); Carbon Dioxide 25 mmol/L (22-29); Chloride 100 mmol/L (98-107); Estimated GFR 102; Glucose 171 mg/dL (70-105); Potassium 3.8 mmol/L (3.5-5.1); Sodium 134 mmol/L (136-145)
[2024-03-15] MEDS: hydrALAZINE 20 MG/ML VIAL SLOW IVP PRN (15:08)
[2024-03-15] MEDS: DAPTOmycin 750 MG in Sodium Chloride 0.9% 50 ML IVPB SCH (20:07)
[2024-03-15] MEDS ORDERED: Vancomycin HCl 750 MG in Sodium Chloride 0.9% 250 ML 250 ML IVPB SCH (23:00)
[2024-03-16 04:03] LABS: Bacteria/HPF None Seen HPF (None Seen); Bilirubin Negative (Negative); Blood, Urine Trace (Negative); CAUTI Indications for Culture Alt mental st,lethar; Clarity Turbid (Clear); Glucose, Urine (Dipstick) 50 mg/dL (Negative); Ketone, Urine Negative (Negative); Leukocyte 75 Leu/uL (Negative); Nitrite Negative (Negative); Protein, Urine (Dipstick) 300 mg/dL (Neg-Trace); Specific Gravity, Urine 1.035 (1.002-1.036); Squamous Epithelial 0-3 HPF (0-3); Urobilinogen Normal mg/dL (Less than 2)
[2024-03-16 04:07] LABS: Urine Culture Reflex Yes Yes
[2024-03-16] MEDS ORDERED: Sodium Bicarbonate 2.5 MEQ/5 ML SDV ONE (07:06)
[2024-03-16] MEDS ORDERED: Lidocaine 1% PF 5 ML VIAL ONE (07:06)
[2024-03-16 08:16] LABS: #Basophils 0.05 10x3/uL (0.0-0.2); %Basophils 0.9 % (0.0-1.0); %Eosinophils 4.7 % (0.0-10.0); %Lymphocytes 19.8 % (21.0-51.0); %Monocytes 10.7 % (0.0-10.0); %Neutrophils 63.5 % (42.0-75.0); Hematocrit 22.7 % (42.0-52.0); Hemoglobin 7.7 g/dL (14.0-18.0); Mean Corpuscular HGB CONC 33.9 g/dL (32.0-36.0); Mean Corpuscular Hemoglobin 29.3 pg (27.0-31.0); Mean Corpuscular Volume 86.3 fL (78.0-98.0); Mean Platelet Volume 8.8 fL (7.4-10.4); Platelet Count 299 10x3/uL (130-400); RBC Distribution Width 14.8 % (11.5-14.5); Red Blood Cell (RBC) Count 2.63 mill/uL (4.70-6.10)
[2024-03-16 08:35] LABS: Anion Gap 10 mmol/L (10-20); BUN (Urea Nitrogen) 19 mg/dL (8.4-25.7); Calc. Creatinine Clearance 117 mL/min (70-130); Calcium 8.1 mg/dL (7.8-10.44); Carbon Dioxide 28 mmol/L (22-29); Chloride 101 mmol/L (98-107); Estimated GFR 104; Glucose 62 mg/dL (70-105); Potassium 3.8 mmol/L (3.5-5.1); Sodium 135 mmol/L (136-145)
[2024-03-16 17:10] VITALS: BMI 26.1
[2024-03-17 05:53] LABS: #Basophils 0.06 10x3/uL (0.0-0.2); %Basophils 0.9 % (0.0-1.0); %Eosinophils 3.9 % (0.0-10.0); %Lymphocytes 13.3 % (21.0-51.0); %Neutrophils 71.4 % (42.0-75.0); Hematocrit 21.2 % (42.0-52.0); Hemoglobin 7.2 g/dL (14.0-18.0); Mean Corpuscular Hemoglobin 29.6 pg (27.0-31.0); Mean Corpuscular Volume 87.2 fL (78.0-98.0); Platelet Count 266 10x3/uL (130-400); Red Blood Cell (RBC) Count 2.43 mill/uL (4.70-6.10)
[2024-03-17 06:10] LABS: Anion Gap 12 mmol/L (10-20); BUN (Urea Nitrogen) 22 mg/dL (8.4-25.7); Calc. Creatinine Clearance 103 mL/min (70-130); Calcium 7.8 mg/dL (7.8-10.44); Carbon Dioxide 26 mmol/L (22-29); Chloride 100 mmol/L (98-107); Estimated GFR 100; Glucose 139 mg/dL (70-105); Potassium 3.7 mmol/L (3.5-5.1); Sodium 134 mmol/L (136-145)
[2024-03-17] MEDS: Acetaminophen 325 MG TAB PO PRN (12:23)
[2024-03-17] MEDS: Furosemide 40 MG (4 mL) VIAL SLOW IVP SCH (12:23)
[2024-03-17] MEDS: HumaLOG 300 UNITS/3 ML VIAL SC PRN (20:58)
[2024-03-18 05:06] LABS: #Basophils 0.04 10x3/uL (0.0-0.2); %Basophils 0.6 % (0.0-1.0); %Lymphocytes 16.2 % (21.0-51.0); %Monocytes 8.6 % (0.0-10.0); %Neutrophils 70.3 % (42.0-75.0); Hematocrit 20.6 % (42.0-52.0); Hemoglobin 6.9 g/dL (14.0-18.0); Mean Corpuscular HGB CONC 33.5 g/dL (32.0-36.0); Mean Corpuscular Hemoglobin 29.9 pg (27.0-31.0); Mean Corpuscular Volume 89.2 fL (78.0-98.0); Platelet Count 216 10x3/uL (130-400); Red Blood Cell (RBC) Count 2.31 mill/uL (4.70-6.10)
[2024-03-18 05:23] LABS: Anion Gap 11 mmol/L (10-20); BUN (Urea Nitrogen) 25 mg/dL (8.4-25.7); Calc. Creatinine Clearance 101 mL/min (70-130); Carbon Dioxide 26 mmol/L (22-29); Chloride 99 mmol/L (98-107); Estimated GFR 99; Glucose 175 mg/dL (70-105); Potassium 3.8 mmol/L (3.5-5.1); Sodium 132 mmol/L (136-145)
[2024-03-18] MEDS: HumaLOG 300 UNITS/3 ML VIAL SC PRN (06:22)
[2024-03-18] MEDS ORDERED: Insulin Lispro 100 UNIT/ML 10 ML VIAL SC PRN ×2 (16:15)
[2024-03-18] MEDS: HYDROcodone/Acetaminophen 5/325 mg Tablet PO PRN (17:42)
[2024-03-18] MEDS: tiZANidine HCl 4 MG TAB PO PRN (20:54)
[2024-03-18] MEDS: Insulin Lispro 100 UNIT/ML 10 ML VIAL SC PRN (22:05)
[2024-03-19 05:30] LABS: #Basophils 0.05 10x3/uL (0.0-0.2); %Basophils 0.8 % (0.0-1.0); %Eosinophils 5.1 % (0.0-10.0); %Lymphocytes 16.3 % (21.0-51.0); %Neutrophils 67.3 % (42.0-75.0); Hematocrit 22.8 % (42.0-52.0); Hemoglobin 7.6 g/dL (14.0-18.0); Mean Corpuscular HGB CONC 33.3 g/dL (32.0-36.0); Mean Corpuscular Hemoglobin 29.7 pg (27.0-31.0); Mean Corpuscular Volume 89.1 fL (78.0-98.0); Mean Platelet Volume 9.1 fL (7.4-10.4); Platelet Count 223 10x3/uL (130-400); RBC Distribution Width 15.9 % (11.5-14.5); Red Blood Cell (RBC) Count 2.56 mill/uL (4.70-6.10)
[2024-03-19 05:48] LABS: Anion Gap 10 mmol/L (10-20); BUN (Urea Nitrogen) 28 mg/dL (8.4-25.7); Calc. Creatinine Clearance 101 mL/min (70-130); Calcium 8.1 mg/dL (7.8-10.44); Carbon Dioxide 26 mmol/L (22-29); Chloride 102 mmol/L (98-107); Estimated GFR 99; Glucose 142 mg/dL (70-105); Potassium 4.4 mmol/L (3.5-5.1); Sodium 134 mmol/L (136-145)
[2024-03-19] MEDS: Nitrofurantoin Monohyd/M-Cryst 100 MG CAP PO SCH (09:28)
[2024-03-19] MEDS: Insulin Lispro 100 UNIT/ML 10 ML VIAL SC PRN (11:58)
[2024-03-19 20:40] VITALS: BP 187/98; TEMP 98.5
== END 2024-03-19 22:15 | DRG 638 ==
LOC: ERS 15:47 → T4-A 21:26
PROVIDERS: ADMIT Internal Medicine; ATTEND Internal Medicine
PROC: 02HV33Z Insertion of Infusion Device into Superior Vena Cava, Percutaneous Approach (ICD-10-PCS; principal; 2024-03-14)
PROC: B5181ZA Fluoroscopy of Superior Vena Cava using Low Osmolar Contrast, Guidance (ICD-10-PCS; 2024-03-14)
PROC: 3E04329 Introduction of Other Anti-infective into Central Vein, Percutaneous Approach (ICD-10-PCS; 2024-03-14)
PROC: B548ZZA Ultrasonography of Superior Vena Cava, Guidance (ICD-10-PCS; 2024-03-14)
PROC: 0HQ6XZZ Repair Back Skin, External Approach (ICD-10-PCS; 2024-03-17)
PROC: 0HB6XZZ Excision of Back Skin, External Approach (ICD-10-PCS; 2024-03-17)
PROC: 30233N1 Transfusion of Nonautologous Red Blood Cells into Peripheral Vein, Percutaneous Approach (ICD-10-PCS; 2024-03-18)
DX: E11.69 Type 2 diabetes mellitus with other specified complication (principal); E87.1 Hypo-osmolality and hyponatremia; M46.24 Osteomyelitis of vertebra, thoracic region; M84.48XA Pathological fracture, other site, initial encounter for fracture; N39.0 Urinary tract infection, site not specified; M46.44 Discitis, unspecified, thoracic region; R59.0 Localized enlarged lymph nodes; I48.0 Paroxysmal atrial fibrillation; G06.1 Intraspinal abscess and granuloma; E03.9 Hypothyroidism, unspecified; B95.62 Methicillin resistant Staphylococcus aureus infection as the cause of diseases classified elsewhere; R33.9 Retention of urine, unspecified; B96.20 Unspecified Escherichia coli [E. coli] as the cause of diseases classified elsewhere; M48.04 Spinal stenosis, thoracic region; D63.8 Anemia in other chronic diseases classified elsewhere; Z79.890 Hormone replacement therapy; Z79.4 Long term (current) use of insulin; Z79.899 Other long term (current) drug therapy; Z90.49 Acquired absence of other specified parts of digestive tract; Z98.890 Other specified postprocedural states; Z79.2 Long term (current) use of antibiotics
CPT/HCPCS: 36415; 36416; 36430; 36569; 71045; 72128; 72129; 76937; 77001; 80048; 80053; 80202; 81001; 82550; 83605; 84484; 85025; 86141; 86850; 86900; 86901; 87040; 87077; 87086; 87186; 93005; 96374; 97139; C1751; J0360; J0878; J1815; J1940; J3370; J3490; P9016; Q9967

== ENCOUNTER 2024-03-26 12:51 | Inpatient (IN) | payer OTHER ==
[2024-03-26 13:53] LABS: #Basophils 0.04 10x3/uL (0.0-0.2); %Basophils 0.5 % (0.0-1.0); %Eosinophils 3.7 % (0.0-10.0); %Lymphocytes 7.4 % (21.0-51.0); %Monocytes 5.8 % (0.0-10.0); %Neutrophils 82.1 % (42.0-75.0); Hematocrit 24.8 % (42.0-52.0); Mean Corpuscular HGB CONC 32.3 g/dL (32.0-36.0); Mean Corpuscular Volume 89.9 fL (78.0-98.0); Mean Platelet Volume 9.6 fL (7.4-10.4); Platelet Count 368 10x3/uL (130-400); RBC Distribution Width 14.8 % (11.5-14.5); Red Blood Cell (RBC) Count 2.76 mill/uL (4.70-6.10)
[2024-03-26 14:14] LABS: ALT (SGPT) 21 U/L (8-55); AST (SGOT) 24 U/L (5-34); Albumin 1.7 g/dL (3.5-5.0); Alkaline Phosphatase 354 U/L (40-110); Anion Gap 12 mmol/L (10-20); BUN (Urea Nitrogen) 38 mg/dL (8.4-25.7); Bilirubin, Total 0.4 mg/dL (0.2-1.2); Calc. Creatinine Clearance 0 mL/min (70-130); Calcium 8.4 mg/dL (7.8-10.44); Carbon Dioxide 24 mmol/L (22-29); Chloride 103 mmol/L (98-107); Estimated GFR 81; Globulin 4.3 g/dL (2.4-3.5); Glucose 171 mg/dL (70-105); Potassium 4.7 mmol/L (3.5-5.1); Sodium 134 mmol/L (136-145)
[2024-03-26 14:15] LABS: Troponin I 0.078 ng/mL (< 0.028)
[2024-03-26 14:20] LABS: INR-International Normal Ratio 1.3; Prothrombin Time 16.3 sec (12.0-14.7)
[2024-03-26] MEDS ORDERED: Ondansetron PF 4 MG/2 ML Vial ONE (14:44)
[2024-03-26] MEDS ORDERED: Furosemide 40 MG (4 mL) VIAL ONE (14:44)
[2024-03-26] MEDS ORDERED: Morphine 4 MG/ML VIAL ONE (14:44)
[2024-03-26 15:06] LABS: Influenza A by NAA Not Detected (NotDetected); Influenza B by NAA Not Detected (NotDetected); SARS-CoV-2 NAA Rapid Test Not Detected (NotDetected)
[2024-03-26] MEDS ORDERED: Iopamidol-370 76% 500 ML MDV (1 ML CHARGE) ONE (15:26)
[2024-03-26] MEDS ORDERED: Dextrose 5% in Water 1,000 ML IV PRN (16:27)
[2024-03-26] MEDS ORDERED: Dextrose 50% Abboject 50 ML SYRINGE SLOW IVP PRN (16:27)
[2024-03-26] MEDS ORDERED: Senokot S 8.6-50 MG TAB PO PRN (16:27)
[2024-03-26] MEDS ORDERED: Glucagon 1 MG/ML KIT IM PRN (16:27)
[2024-03-26 17:14] LABS: Troponin I 0.078 ng/mL (< 0.028)
[2024-03-26 17:42] LABS: Magnesium 1.8 mg/dL (1.6-2.6)
[2024-03-26 18:05] LABS: Troponin I 0.082 ng/mL (< 0.028)
[2024-03-26 19:16] VITALS: BMI 28.3
[2024-03-26] MEDS: Guaifenesin DM 100-10/5 ML UDCUP PO PRN (21:32)
[2024-03-26] MEDS: Rifampin 300 MG CAP PO SCH (21:33)
[2024-03-26] MEDS: Famotidine 20 MG TAB PO SCH (21:33)
[2024-03-26] MEDS: Apixaban 5 MG TAB PO SCH (21:33)
[2024-03-27] MEDS: HYDROcodone/Acetaminophen 5/325 mg Tablet PO SCH (01:07)
[2024-03-27] MEDS: hydrALAZINE 25 MG TAB PO SCH (01:07)
[2024-03-27 04:40] LABS: #Basophils 0.05 10x3/uL (0.0-0.2); %Basophils 0.6 % (0.0-1.0); %Lymphocytes 9.1 % (21.0-51.0); %Monocytes 6.4 % (0.0-10.0); %Neutrophils 78.5 % (42.0-75.0); Hematocrit 23.4 % (42.0-52.0); Hemoglobin 7.8 g/dL (14.0-18.0); Mean Corpuscular HGB CONC 33.3 g/dL (32.0-36.0); Mean Corpuscular Hemoglobin 28.9 pg (27.0-31.0); Mean Corpuscular Volume 86.7 fL (78.0-98.0); Mean Platelet Volume 9.5 fL (7.4-10.4); Platelet Count 392 10x3/uL (130-400); RBC Distribution Width 14.9 % (11.5-14.5)
[2024-03-27 05:00] LABS: ALT (SGPT) 15 U/L (8-55); AST (SGOT) 18 U/L (5-34); Albumin 1.6 g/dL (3.5-5.0); Alkaline Phosphatase 284 U/L (40-110); Anion Gap 15 mmol/L (10-20); BUN (Urea Nitrogen) 33 mg/dL (8.4-25.7); Bilirubin, Total 0.4 mg/dL (0.2-1.2); Calc. Creatinine Clearance 107 mL/min (70-130); Calcium 8.2 mg/dL (7.8-10.44); Carbon Dioxide 24 mmol/L (22-29); Chloride 100 mmol/L (98-107); Estimated GFR 90; Globulin 3.9 g/dL (2.4-3.5); Glucose 137 mg/dL (70-105); Potassium 4.4 mmol/L (3.5-5.1); Protein, Total 5.5 g/dL (6.0-8.3); Sodium 135 mmol/L (136-145)
[2024-03-27] MEDS: Furosemide 20 MG (2 mL) VIAL SLOW IVP SCH (06:29)
[2024-03-27] MEDS: Acetaminophen 325 MG TAB PO SCH (06:29)
[2024-03-27] MEDS ORDERED: Lisinopril 20 MG TAB PO SCH (09:00)
[2024-03-27] MEDS: Lisinopril 20 MG TAB PO SCH (09:20)
[2024-03-27] MEDS: Hydrochlorothiazide 25 MG TAB PO SCH (09:20)
[2024-03-27 11:36] VITALS: BMI 28.3
[2024-03-27] MEDS: Insulin Regular, Human 100 UNIT/ML 10 ML VIAL SC PRN (13:39)
[2024-03-28 05:19] LABS: Anion Gap 14 mmol/L (10-20); BUN (Urea Nitrogen) 29 mg/dL (8.4-25.7); Calc. Creatinine Clearance 95 mL/min (70-130); Calcium 8.4 mg/dL (7.8-10.44); Carbon Dioxide 27 mmol/L (22-29); Chloride 97 mmol/L (98-107); Estimated GFR 79; Glucose 195 mg/dL (70-105); Potassium 3.9 mmol/L (3.5-5.1); Sodium 134 mmol/L (136-145)
[2024-03-28 06:41] LABS: Magnesium 1.5 mg/dL (1.6-2.6)
[2024-03-28] MEDS: Furosemide 20 MG TAB PO SCH (09:48)
[2024-03-28] MEDS: Magnesium 2 GM/50 ML(in water) 2 GM in Premix 1 BAG IVPB SCH (12:32)
[2024-03-28] MEDS ORDERED: Insulin Glargine 30 UNITS/0.3 ML VIAL SC SCH (15:30)
[2024-03-28] MEDS: hydrALAZINE 20 MG/ML VIAL SLOW IVP PRN (17:03)
[2024-03-28] MEDS: Insulin Glargine 30 UNITS/0.3 ML VIAL SC SCH (17:04)
[2024-03-28] MEDS: HYDROcodone/Acetaminophen 10/325 mg Tablet PO SCH (18:12)
[2024-03-29 05:16] LABS: #Basophils 0.03 10x3/uL (0.0-0.2); %Basophils 0.6 % (0.0-1.0); %Eosinophils 5.4 % (0.0-10.0); %Lymphocytes 15.7 % (21.0-51.0); %Monocytes 9.7 % (0.0-10.0); %Neutrophils 68.2 % (42.0-75.0); Hematocrit 22.7 % (42.0-52.0); Hemoglobin 7.5 g/dL (14.0-18.0); Mean Corpuscular Hemoglobin 28.3 pg (27.0-31.0); Mean Corpuscular Volume 85.7 fL (78.0-98.0); Mean Platelet Volume 9.1 fL (7.4-10.4); Platelet Count 409 10x3/uL (130-400); RBC Distribution Width 14.6 % (11.5-14.5); Red Blood Cell (RBC) Count 2.65 mill/uL (4.70-6.10)
[2024-03-29 05:38] LABS: Anion Gap 12 mmol/L (10-20); BUN (Urea Nitrogen) 28 mg/dL (8.4-25.7); Calc. Creatinine Clearance 96 mL/min (70-130); Calcium 8.2 mg/dL (7.8-10.44); Carbon Dioxide 27 mmol/L (22-29); Chloride 96 mmol/L (98-107); Estimated GFR 84; Glucose 134 mg/dL (70-105); Potassium 3.6 mmol/L (3.5-5.1); Sodium 131 mmol/L (136-145)
[2024-03-29] MEDS: hydrALAZINE 25 MG TAB PO SCH ×2 (12:16→21:23)
[2024-03-29] MEDS: HYDROcodone/Acetaminophen 10/325 mg Tablet PO PRN (12:16)
[2024-03-29] MEDS: Carvedilol 6.25 MG TAB PO SCH (16:16)
[2024-03-30 04:54] LABS: #Basophils 0.03 10x3/uL (0.0-0.2); %Basophils 0.5 % (0.0-1.0); %Eosinophils 4.3 % (0.0-10.0); %Lymphocytes 12.8 % (21.0-51.0); %Neutrophils 73.8 % (42.0-75.0); Hematocrit 23.1 % (42.0-52.0); Hemoglobin 7.6 g/dL (14.0-18.0); Mean Corpuscular HGB CONC 32.9 g/dL (32.0-36.0); Mean Corpuscular Hemoglobin 28.8 pg (27.0-31.0); Mean Corpuscular Volume 87.5 fL (78.0-98.0); Mean Platelet Volume 9.3 fL (7.4-10.4); Platelet Count 433 10x3/uL (130-400); RBC Distribution Width 14.7 % (11.5-14.5); Red Blood Cell (RBC) Count 2.64 mill/uL (4.70-6.10)
[2024-03-30 05:10] LABS: Anion Gap 11 mmol/L (10-20); BUN (Urea Nitrogen) 28 mg/dL (8.4-25.7); Calc. Creatinine Clearance 103 mL/min (70-130); Calcium 8.1 mg/dL (7.8-10.44); Carbon Dioxide 28 mmol/L (22-29); Chloride 95 mmol/L (98-107); Estimated GFR 92; Glucose 344 mg/dL (70-105); Sodium 130 mmol/L (136-145)
[2024-03-30] MEDS ORDERED: Sodium Bicarbonate 2.5 MEQ/5 ML SDV ONE (09:31)
[2024-03-30] MEDS ORDERED: Lidocaine 1% PF 5 ML VIAL ONE (09:31)
[2024-03-30 12:21] LABS: Iron 26 ug/dL (65-175); Iron Binding Capacity, Total 140 mcg/dL (261-462)
[2024-03-30] MEDS: Insulin Lispro 100 UNIT/ML 10 ML VIAL SC SCH (13:30)
[2024-03-30] MEDS: Ferrous Sulfate 325 MG TAB PO SCH (13:32)
[2024-03-30] MEDS: NIFEdipine XL 90 MG ER.TAB PO SCH ×2 (13:34→21:23)
[2024-03-30] MEDS: Empagliflozin 10 MG TAB PO SCH (13:35)
[2024-03-31 04:04] LABS: #Basophils 0.04 10x3/uL (0.0-0.2); %Basophils 0.6 % (0.0-1.0); %Eosinophils 4.5 % (0.0-10.0); %Lymphocytes 12.6 % (21.0-51.0); %Monocytes 8.3 % (0.0-10.0); %Neutrophils 73.4 % (42.0-75.0); Hematocrit 22.4 % (42.0-52.0); Hemoglobin 7.5 g/dL (14.0-18.0); Mean Corpuscular HGB CONC 33.5 g/dL (32.0-36.0); Mean Corpuscular Hemoglobin 29.1 pg (27.0-31.0); Mean Corpuscular Volume 86.8 fL (78.0-98.0); Mean Platelet Volume 8.9 fL (7.4-10.4); Platelet Count 423 10x3/uL (130-400); RBC Distribution Width 14.8 % (11.5-14.5); Red Blood Cell (RBC) Count 2.58 mill/uL (4.70-6.10)
[2024-03-31 04:22] LABS: Anion Gap 10 mmol/L (10-20); BUN (Urea Nitrogen) 29 mg/dL (8.4-25.7); Calc. Creatinine Clearance 87 mL/min (70-130); Calcium 8.1 mg/dL (7.8-10.44); Carbon Dioxide 29 mmol/L (22-29); Chloride 96 mmol/L (98-107); Estimated GFR 75; Glucose 212 mg/dL (70-105); Sodium 131 mmol/L (136-145)
[2024-03-31] MEDS: Ferrous Sulfate 325 MG TAB PO SCH (09:22)
[2024-03-31] MEDS: Empagliflozin 10 MG TAB PO SCH (09:23)
[2024-04-01 04:42] LABS: #Basophils 0.05 10x3/uL (0.0-0.2); %Basophils 0.5 % (0.0-1.0); %Lymphocytes 9.1 % (21.0-51.0); %Monocytes 6.8 % (0.0-10.0); %Neutrophils 81.1 % (42.0-75.0); Hematocrit 23.7 % (42.0-52.0); Hemoglobin 7.9 g/dL (14.0-18.0); Mean Corpuscular HGB CONC 33.3 g/dL (32.0-36.0); Mean Corpuscular Hemoglobin 28.6 pg (27.0-31.0); Mean Corpuscular Volume 85.9 fL (78.0-98.0); Mean Platelet Volume 8.7 fL (7.4-10.4); Platelet Count 440 10x3/uL (130-400); RBC Distribution Width 15.2 % (11.5-14.5); Red Blood Cell (RBC) Count 2.76 mill/uL (4.70-6.10)
[2024-04-01 04:57] LABS: Anion Gap 14 mmol/L (10-20); BUN (Urea Nitrogen) 29 mg/dL (8.4-25.7); Calc. Creatinine Clearance 87 mL/min (70-130); Calcium 8.3 mg/dL (7.8-10.44); Carbon Dioxide 27 mmol/L (22-29); Chloride 95 mmol/L (98-107); Estimated GFR 77; Glucose 205 mg/dL (70-105); Potassium 3.7 mmol/L (3.5-5.1); Sodium 132 mmol/L (136-145)
[2024-04-01 12:12] VITALS: BP 137/76; TEMP 97.2
== END 2024-04-01 16:45 | DRG 291 ==
LOC: ERS 12:51 → 2NO 15:37
PROVIDERS: ADMIT Hospitalist; ATTEND Internal Medicine
PROC: 02HV33Z Insertion of Infusion Device into Superior Vena Cava, Percutaneous Approach (ICD-10-PCS; principal; 2024-03-30)
PROC: B518ZZA Fluoroscopy of Superior Vena Cava, Guidance (ICD-10-PCS; 2024-03-30)
PROC: B548ZZA Ultrasonography of Superior Vena Cava, Guidance (ICD-10-PCS; 2024-03-30)
DX: I11.0 Hypertensive heart disease with heart failure (principal); I50.33 Acute on chronic diastolic (congestive) heart failure; M46.24 Osteomyelitis of vertebra, thoracic region; G82.20 Paraplegia, unspecified; I48.91 Unspecified atrial fibrillation; D64.9 Anemia, unspecified; E03.9 Hypothyroidism, unspecified; R79.89 Other specified abnormal findings of blood chemistry; E11.69 Type 2 diabetes mellitus with other specified complication; Z79.890 Hormone replacement therapy; Z79.899 Other long term (current) drug therapy; Z79.4 Long term (current) use of insulin; Z79.84 Long term (current) use of oral hypoglycemic drugs; Z79.01 Long term (current) use of anticoagulants; Z90.49 Acquired absence of other specified parts of digestive tract; Z98.1 Arthrodesis status; Z86.718 Personal history of other venous thrombosis and embolism
CPT/HCPCS: 36415; 36416; 36569; 71045; 71275; 76937; 77001; 80048; 80053; 82728; 83540; 83550; 83605; 83735; 83880; 84484; 85025; 85610; 85730; 86850; 86900; 86901; 87040; 93005; 93306; 93798; 96374; 96375; 97139; J0360; J0878; J1815; J1940; J2270; J2405; J3475; Q9967

== ENCOUNTER 2024-06-01 08:40 | Emergency (ER) | payer OTHER ==
[2024-06-01] MEDS ORDERED: Acetaminophen 500 MG TAB ONE (09:25)
[2024-06-01 09:52] LABS: #Basophils 0.03 10x3/uL (0.0-0.2); %Basophils 0.7 % (0.0-1.0); %Eosinophils 3.8 % (0.0-10.0); %Lymphocytes 21.5 % (21.0-51.0); %Monocytes 8.1 % (0.0-10.0); %Neutrophils 65.7 % (42.0-75.0); Hemoglobin 7.6 g/dL (14.0-18.0); Mean Corpuscular Hemoglobin 29.5 pg (27.0-31.0); Mean Corpuscular Volume 89.1 fL (78.0-98.0); Platelet Count 215 10x3/uL (130-400); RBC Distribution Width 17.6 % (11.5-14.5); Red Blood Cell (RBC) Count 2.58 mill/uL (4.70-6.10)
[2024-06-01 10:07] LABS: ALT (SGPT) 13 U/L (8-55); AST (SGOT) 19 U/L (5-34); Albumin 3.1 g/dL (3.5-5.0); Alkaline Phosphatase 138 U/L (40-110); Anion Gap 13 mmol/L (10-20); BUN (Urea Nitrogen) 32 mg/dL (8.4-25.7); Bilirubin, Total 0.5 mg/dL (0.2-1.2); Calc. Creatinine Clearance 0 mL/min (70-130); Calcium 9.2 mg/dL (7.8-10.44); Carbon Dioxide 25 mmol/L (22-29); Chloride 102 mmol/L (98-107); Estimated GFR 83; Globulin 3.7 g/dL (2.4-3.5); Glucose 136 mg/dL (70-105); Potassium 4.4 mmol/L (3.5-5.1); Protein, Total 6.8 g/dL (6.0-8.3); Sodium 136 mmol/L (136-145)
[2024-06-01 10:08] LABS: INR-International Normal Ratio 1.4; Prothrombin Time 17.6 sec (12.0-14.7)
[2024-06-01 10:09] LABS: PTT 42.7 sec (22.9-36.1)
== END 2024-06-01 11:09 | disposition home or self-care (01) ==
LOC: ERS 08:40
DX: S90.32XA Contusion of left foot, initial encounter (principal); I11.0 Hypertensive heart disease with heart failure; I50.9 Heart failure, unspecified; E11.9 Type 2 diabetes mellitus without complications; X58.XXXA Exposure to other specified factors, initial encounter; Y93.89 Activity, other specified; Z55.6 Problems related to health literacy; Z75.8 Other problems related to medical facilities and other health care; Z87.891 Personal history of nicotine dependence; Z79.01 Long term (current) use of anticoagulants; Z79.899 Other long term (current) drug therapy; Z79.84 Long term (current) use of oral hypoglycemic drugs; Z86.718 Personal history of other venous thrombosis and embolism
CPT/HCPCS: 80053; 83605; 85025; 85610; 85730; 87040

== ENCOUNTER 2024-07-12 12:07 | Emergency (ER) | payer OTHER ==
[2024-07-12 12:27] LABS: #Basophils 0.03 10x3/uL (0.0-0.2); %Eosinophils 2.9 % (0.0-10.0); %Lymphocytes 25.6 % (21.0-51.0); %Monocytes 9.3 % (0.0-10.0); %Neutrophils 60.9 % (42.0-75.0); Hematocrit 27.5 % (42.0-52.0); Hemoglobin 8.7 g/dL (14.0-18.0); Mean Corpuscular HGB CONC 31.6 g/dL (32.0-36.0); Mean Corpuscular Hemoglobin 29.4 pg (27.0-31.0); Mean Corpuscular Volume 92.9 fL (78.0-98.0); Mean Platelet Volume 8.7 fL (7.4-10.4); Platelet Count 148 10x3/uL (130-400); RBC Distribution Width 16.1 % (11.5-14.5); Red Blood Cell (RBC) Count 2.96 mill/uL (4.70-6.10)
[2024-07-12 13:04] LABS: CRP,High Sensitivity (Inhouse) 0.03 mg/dL (< or = 0.5)
[2024-07-12 13:05] LABS: ALT (SGPT) 23 U/L (8-55); AST (SGOT) 28 U/L (5-34); Alkaline Phosphatase 115 U/L (40-110); Anion Gap 10 mmol/L (10-20); BUN (Urea Nitrogen) 34 mg/dL (8.4-25.7); Bilirubin, Total 0.3 mg/dL (0.2-1.2); Calc. Creatinine Clearance 0 mL/min (70-130); Calcium 8.7 mg/dL (7.8-10.44); Carbon Dioxide 27 mmol/L (22-29); Chloride 104 mmol/L (98-107); Estimated GFR 75; Globulin 3.2 g/dL (2.4-3.5); Glucose 122 mg/dL (70-105); Potassium 4.4 mmol/L (3.5-5.1); Protein, Total 6.2 g/dL (6.0-8.3); Sodium 137 mmol/L (136-145)
[2024-07-12 13:06] LABS: Troponin I 0.021 ng/mL (< 0.028)
[2024-07-12 15:06] LABS: Bilirubin Negative (Negative); Blood, Urine Negative (Negative); CAUTI Indications for Culture Pelvic or flank pain; Clarity Clear (Clear); Glucose, Urine (Dipstick) Greater than 1000 mg/dL (Negative); Ketone, Urine Negative (Negative); Leukocyte Negative Leu/uL (Negative); Nitrite Negative (Negative); Protein, Urine (Dipstick) 200 mg/dL (Neg-Trace); RBC/HPF 0-3 HPF (0-3); Specific Gravity, Urine 1.009 (1.002-1.036); Squamous Epithelial 0-3 HPF (0-3); Urobilinogen Normal mg/dL (Less than 2); WBC/HPF 0-3 HPF (0-3); pH, Urine 5.5 (5.0-9.0)
[2024-07-12 15:07] LABS: Bacteria/HPF 1+ HPF (None Seen)
[2024-07-12 15:08] LABS: Urine Culture Reflex No No
== END 2024-07-12 15:55 | disposition home or self-care (01) ==
LOC: ERS 12:07
DX: R53.1 Weakness (principal); R60.0 Localized edema; E11.9 Type 2 diabetes mellitus without complications; I10 Essential (primary) hypertension; Z55.0 Illiteracy and low-level literacy; Z79.84 Long term (current) use of oral hypoglycemic drugs; Z79.01 Long term (current) use of anticoagulants; Z87.891 Personal history of nicotine dependence
CPT/HCPCS: 36415; 51701; 71045; 80053; 81001; 83605; 84484; 85025; 86141; 87428; 93005; 99285

== ENCOUNTER 2024-08-27 08:57 | Outpatient (CLI) | payer OTHER | END 2024-08-27 08:58 | disposition home or self-care (01) | LOC: BICMRI 08:57 | PROVIDERS: ATTEND Surgery | DX: G06.1 Intraspinal abscess and granuloma (principal); Z98.890 Other specified postprocedural states; Z98.1 Arthrodesis status | CPT/HCPCS: 36415; 70250; 72157; 82565 ==